=== PATIENT | female | born 1955 | race Caucasian/White ===

== ENCOUNTER → 2016-10-20 | Outpatient (CLI) | payer BC ==
--- NOTE | 2016-10-21 05:58 | HKNOTE ---
DATE OF SERVICE: 10/20/2016 The patient comes in complaining of pain over the right greater trochanter. She got 11 months of re lief from the last cortisone injection I gave in the trochanteric bursa. She indicates that the fidelina n is now "as bad as it ever was." PHYSICAL EXAMINATION: GENERAL: A fit looking 60-year-old female. She comes in with her . VITAL SIGNS: Height 5 feet 10 inches, weight 216 pounds, blood pressure 120/60, temperature 98.3. RIGHT HIP: Exam of the right hip shows marked tenderness over the right greater trochanter. Full r erika of motion of the hip without pain. IMAGING: Plain x-rays of the right hip obtained today suggests that there might be an irregularity at the insertion of the gluteus medius into the proximal femur. DIAGNOSIS: Trochanteric bursitis. MANAGEMENT: Under sterile conditions, given injection of 2 mL of Kenalog and 6 mL of 2% lidocaine i nto the trochanteric bursa. She will be seen again as necessary. Dictated By: SRI RIZO/VIOLET Conf#: [id number] DID#: [id number]
--- NOTE | 2016-10-21 09:29 | RADRPT ---
PROCEDURE: XR pelvis/right hip. CLINICAL INDICATION: Hip pain TECHNIQUE: AP pelvis/lateral right hip view performed COMPARISON: 11/04/2015 FINDINGS: There is mild to moderate bilateral hip osteoarthrosis. This is associated with joint space narrowin g, subchondral sclerosis and osteophytosis. There is normal mineralization. No fractures or osseou s lesions are identified. The soft tissues are unremarkable. IMPRESSION: Mild to moderate bilateral hip osteoarthrosis. RPTAT: HGDB .Calvin Herndon MD, Date Time Electronically viewed and signed by .Calvin Herndon MD, on 10/21/2016 09:29 .B/
== END | disposition home or self-care (01) ==
LOC: HKI 13:34
DX: M70.61 Trochanteric bursitis, right hip (principal); M16.0 Bilateral primary osteoarthritis of hip
CPT/HCPCS: 20610; 73502; G0463